=== PATIENT | female | born 1995 | race Caucasian/White ===

== ENCOUNTER 2020-04-03 15:59 | Emergency (ER) | payer OTHER ==
[~2020-04-03] VITALS: Ht 149.9 cm; Wt 45.4 kg
[2020-04-03 16:00] VITALS: BP_SYST 108
[2020-04-03] MEDS ORDERED: NACL 0.9% 1,000 ML IV ONE (16:15)
[2020-04-03] MEDS ORDERED: KETOROLAC TROMETHAMINE 30 MG VIAL IVP ONE (16:15)
--- NOTE | 2020-04-03 16:30 | NUR ---
PLACED IN FAST TRACK 2
--- NOTE | 2020-04-03 16:45 | NUR ---
Patient to ER Fast Track chair to gown for evaluation. Side rails up.
[2020-04-03 16:53] LABS: BASOPHILS # (AUTO) 0.1 K/uL (0.0-0.2); BASOPHILS % (AUTO) 0.5 % (0.0-2.0); HEMATOCRIT 40.5 % (36-48); HEMOGLOBIN 13.5 g/dL (12.0-16.0); LYMPHOCYTES # (AUTO) 0.6 K/uL (1.0-5.5); LYMPHOCYTES % (AUTO) 3.2 % (20.5-51.5); MEAN CORPUSCULAR HEMOGLOBIN 28 pg (27-31); MEAN CORPUSCULAR HGB CONC 33 % (32-36); MEAN CORPUSCULAR VOLUME 84 fL (79.0-98.0); MONOCYTES # (AUTO) 0.9 K/uL (0.0-1.0); MONOCYTES % (AUTO) 4.7 % (1.7-9.3); NEUTROPHILS # (AUTO) 18.1 K/uL (1.8-7.7); NEUTROPHILS % (AUTO) 91.6 % (40.0-70.0); PLATELET COUNT (AUTO) 321 K/uL (130-430); RED BLOOD CELL COUNT(AUTO) 4.81 MIL/uL (4.2-6.2); RED CELL DISTRIBUTION WIDTH 12.7 % (9.0-15.0); WHITE BLOOD COUNT (AUTO) 19.8 K/uL (4.8-10.8)
--- NOTE | 2020-04-03 17:00 | NUR ---
Dr. Soler chair side for pt sukhdeep
--- NOTE | 2020-04-03 17:15 | NUR ---
Pt BIB family to ED seeking evaluation of right-sided lower abdominal pain with sudden onset this morning which is rated a 10/10 in intensity. Patient reports leaving [facility] after not being seeing for current symptoms. No relieving or exacerbating factors. She denies any injury or trauma, nausea, vomiting, diarrhea, hematochezia, melena, or urinary symptoms
[2020-04-03 17:18] LABS: ALBUMIN 4.5 g/dL (3.4-4.8); CALCIUM 8.8 mg/dL (8.4-11.0); CREATININE 0.68 mg/dL (0.55-1.30); POTASSIUM 3.5 mmol/L (3.5-5.1); TOTAL BILIRUBIN 0.8 mg/dL (0.0-1.0)
[2020-04-03] MEDS ORDERED: NAPR-1172 PO (18:55)
[2020-04-03 19:00] VITALS: BP_SYST 108
--- NOTE | 2020-04-03 19:00 | NUR ---
Patient given written and verbal discharge instructions and verbalizes understanding. ER MD discussed with patient the results and treatment provided. Patient in stable condition. ID arm band removed. Patient educated on pain management and to follow up with PMD. Pain Scale 0/10 Opportunity for questions provided and answered.
== END 2020-04-03 19:00 | disposition home or self-care (01) ==
LOC: SED 15:59
DX: N83.202 Unspecified ovarian cyst, left side (principal)
CPT/HCPCS: 36415; 74176; 76376; 76856; 80053; 85025; 96365; 99285; J1885; J7030